=== PATIENT | male | born 2000 | race Caucasian/White ===

== ENCOUNTER 2021-06-18 21:35 | Emergency (ER) | payer BC, SELFPAY ==
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
[2021-06-18 21:40] VITALS: BP 132/83; PULSE 104; RESP 16; TEMP 36.9; O2SAT 98
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
== END 2021-06-19 00:05 | disposition home or self-care (01) ==
PROVIDERS: Emergency Provider Emergency Medicine
DX: S92.424A Nondisplaced fracture of distal phalanx of right great toe, initial encounter for closed fracture (principal); V19.9XXA Pedal cyclist (driver) (passenger) injured in unspecified traffic accident, initial encounter
CPT/HCPCS: 73630; 99283